=== PATIENT | female | born 1940 | race Caucasian/White ===

== ENCOUNTER → 2016-10-14 | Outpatient (REF) | payer MEDICARE, OTHER | LOC: M SFHCPLAZ 14:54 | PROVIDERS: ATTEND Family Medicine | DX: F10.10 Alcohol abuse, uncomplicated (principal); I15.9 Secondary hypertension, unspecified; Z13.21 Encounter for screening for nutritional disorder ==

== ENCOUNTER → 2017-01-28 | Outpatient (CLI) | payer MEDICARE, BC, OTHER ==
[~2017-01-28] MED LIST: E-Z PAQUE 60% w/v SUSP 355ML BOTTLE As Ordered ONE; E-Z-GAS II EFFERVESCENT PACKET (SODIUM BICARB./CITRIC ACID/SIMETHICONE) As Ordered ONE; E-Z-HD 98% w/w 340GM SUSP BTL As Ordered ONE
--- NOTE | 2017-01-28 16:52 | REP ---
UPPER GI AIR CONTRAST AND SMALL BOWEL FOLLOW-THROUGH: The procedure was performed under the direct supervision of Dr. Saha. The images were reviewed with Dr. Saha. The lining maker hand film demonstrates an unremarkable bowel gas pattern. There is a 4.2 cm calcified uterine fibroid in the pelvis. There are degenerative changes of the spine. Liquid barium and gas producing granules were given in the erect position as well as liquid barium in the prone oblique position in order to perform a double contrast upper GI examination. During the oral an pharyngeal stages of deglutition the patient did experience 1 episode of aspiration without cough response. Esophageal transport is prompt and efficient. There is mucosal irregularity at the GE junction. This may represent gastritis however neoplasm can not be excluded, recommend endoscopy for further evaluation. There is gastroesophageal reflux demonstrated to above the level of the kimberli. Within the stomach there is prominent areae gastricae seen throughout the stomach. There is mucosal fold thickening. There is a diffusely narrow gastric lumen. These findings may represent gastritis however neoplasm can not be excluded. Recommend endoscopy for further evaluation. The duodenal dey are normally outlined. The mucosal folds are smooth and regular. There is no evidence of duodenitis, pancreatitis, peptic ulcer disease, or neoplasm. There is a diverticulum seen in the third portion of the duodenum. The barium column was followed through the small bowel to the level of the terminal ileum. Small bowel transit time was quite rapid as contrast is seen in the cecum within just a few minutes of beginning the exam. During fluoroscopy gentle palpation shows all loops are freely movable and pliable. There are no fixed or angulated loops. The small bowel mucosal pattern is normal in course and caliber. There is no transition to suggest a partial small bowel obstruction. Spot filming of terminal ileum shows it to be unremarkable. IMPRESSION: 1. The patient experienced an episode of aspiration without cough response. 2. At the GE junction there is irregular mucosa. This may represent esophagitis however neoplasm can not be excluded. Recommend endoscopy for further evaluation. There is gastroesophageal reflux demonstrated to above the level of the kimberli. 3. Within the stomach there are prominent areae gastricae. There is mucosal fold thickening. There is diffuse narrowing of the gastric lumen. These findings may represent gastritis however neoplasm can not be excluded. Recommend endoscopy for further evaluation. 4 minutes and 48 seconds of fluoroscopy time was utilized for this procedure. Reviewed by KARIE Garcia 01/28/2017 04:58 PEdited and Signed by Yvan Saha MD 01/28/2017 05:10 P
== END ==
LOC: M RAD 08:49
PROVIDERS: ATTEND Family Medicine
DX: R68.81 Early satiety (principal)

== ENCOUNTER → 2017-02-25 | Outpatient (CLI) | payer MEDICARE, BC, OTHER ==
[~2017-02-25] VITALS: Ht 162.6 cm; Wt 46.7 kg
[~2017-02-25] MED LIST changes: +AMLO10TA PO; +AMLO25TA PO; +ATEN25TA PO; -E-Z PAQUE 60% w/v SUSP 355ML BOTTLE As Ordered ONE; -E-Z-GAS II EFFERVESCENT PACKET (SODIUM BICARB./CITRIC ACID/SIMETHICONE) As Ordered ONE; -E-Z-HD 98% w/w 340GM SUSP BTL As Ordered ONE; +NORV5TAB PO; +NS 1,000 ML IV ONE; +PROPOFOL 200 MG/20 ML VIAL As Ordered ONE; +VITA50003 PO
--- NOTE | 2017-02-25 10:41 | ROOR ---
Patient Name: Marcelina Mattson Procedure Date: 02/25/2017 10:18 AM Date of : 1940 Age: 76 Room: [facility] Gender: Female Note Status: Finalized Procedure: Upper GI endoscopy = Biopsies Indications: Dysphagia, Abnormal UGI series Providers: Price Rodríguez MD Referring MD: Jerson Duron DO Requesting Provider: Medicines: Monitored Anesthesia Care Complications: No immediate complications. Procedure: Pre-Anesthesia Assessment: - The heart rate, respiratory rate, oxygen saturations, blood pressure, adequacy of pulmonary ventilation, and response to care were monitored throughout the procedure. The Endoscope was introduced through the mouth, and advanced to the second part of duodenum. The upper GI endoscopy was accomplished without difficulty. The patient tolerated the procedure well. Findings: The Z-line was regular and was found 40 cm from the incisors. Diffuse severe inflammation characterized by congestion (edema), erosions, erythema, friability, granularity, linear erosions and shallow ulcerations was found in the cardia, in the gastric fundus and in the gastric body. Biopsies were taken with a cold forceps for histology. The exam of the duodenum was otherwise normal. Impression: - Z-line regular, 40 cm from the incisors. - Chronic gastritis. Biopsied. - The examination was otherwise normal. Recommendation: - Await pathology results. - Discharge patient to home. - Continue present medications. - Use Prilosec (omeprazole) 40 mg PO BID. - Use sucralfate tablets 1 gram PO QID. - Return to referring physician. - The findings and recommendations were discussed with the patient's family. Prcie Rodríguez MD Price Rodríguez MD 02/25/2017 10:40:25 AM This report has been signed electronically. Number of Addenda: 0 Note Initiated On: 02/25/2017 10:18 AM Estimated Blood Loss: Estimated blood loss: none.
[2017-02-25 10:45] VITALS: BP 147/93
== END | disposition home or self-care (01) ==
LOC: M OPP 09:28
PROVIDERS: ATTEND Internal Medicine Gastroenterology
DX: R93.3 Abnormal findings on diagnostic imaging of other parts of digestive tract (principal); R13.10 Dysphagia, unspecified; K29.70 Gastritis, unspecified, without bleeding; I10 Essential (primary) hypertension; R12 Heartburn; M81.0 Age-related osteoporosis without current pathological fracture; Z78.0 Asymptomatic menopausal state; R25.1 Tremor, unspecified; Z79.899 Other long term (current) drug therapy

== ENCOUNTER → 2017-02-28 | Outpatient (REF) | payer MEDICARE, OTHER ==
[~2017-02-28] MED LIST changes: -NS 1,000 ML IV ONE; -PROPOFOL 200 MG/20 ML VIAL As Ordered ONE
[2017-02-28 12:04] LABS: BASO % 0.3 % (0.0-1.0); EOS % 0.4 % (0.0-3.0); LARGE UNSTAINED CELL # 0.1 K/mm3 (0.0-0.4); LARGE UNSTAINED CELL % 1.6 % (0.0-4.0); LYMPH # 2.5 K/mm3 (1.5-4.5); LYMPH % 31.1 % (24.0-44.0); MEAN CORPUSCULAR HEMOGLOBIN 30.9 pg (27.0-33.0); MEAN CORPUSCULAR HGB CONC 32.6 g/dl (32.0-36.5); MEAN CORPUSCULAR VOLUME 94.6 fl (80.0-96.0); MONO # 0.6 K/mm3 (0.0-0.8); MONO % 8.2 % (0.0-5.0); NEUTROPHILS # 4.5 K/mm3 (1.8-7.7); NEUTROPHILS % 58.4 % (36.0-66.0); PLATELET COUNT, AUTOMATED 275 k/mm3 (150-450); RED CELL DISTRIBUTION WIDTH 12.8 % (11.5-14.5); WHITE BLOOD COUNT 7.7 K/mm3 (4.0-10.0)
[2017-02-28 12:45] LABS: ALBUMIN 3.6 GM/DL (3.2-5.2); ALBUMIN/GLOBULIN RATIO 1.13 (1.00-1.93); ALKALINE PHOSPHATASE 69 U/L (45-117); ALT/SGPT 19 U/L (12-78); ANION GAP 8 MEQ/L (8-16); AST/SGOT 20 U/L (15-37); BILIRUBIN,DIRECT 0.2 MG/DL (0.0-0.2); BILIRUBIN,TOTAL 0.5 MG/DL (0.2-1.0); BLOOD UREA NITROGEN 11 MG/DL (7-18); CALCIUM LEVEL 9.1 MG/DL (8.8-10.2); CARBON DIOXIDE LEVEL 29 MEQ/L (21-32); CHLORIDE LEVEL 103 MEQ/L (98-107); CREATININE FOR GFR 0.66 MG/DL (0.55-1.02); GLOMERULAR FILTRATION RATE > 60.0 (>39); GLUCOSE, FASTING 120 MG/DL (83-110); POTASSIUM SERUM 3.7 MEQ/L (3.5-5.1); SODIUM LEVEL 140 MEQ/L (136-145); TOTAL PROTEIN 6.8 GM/DL (6.4-8.2)
== END ==
LOC: M LABDRAWP 11:41
PROVIDERS: ATTEND Internal Medicine Gastroenterology
DX: C16.9 Malignant neoplasm of stomach, unspecified (principal); R93.3 Abnormal findings on diagnostic imaging of other parts of digestive tract

== ENCOUNTER → 2017-03-04 | Outpatient (CLI) | payer MEDICARE, BC, OTHER ==
[~2017-03-04] MED LIST changes: +GASTROGRAFIN SOLUTION 30ML (Q9963) As Ordered ONE; +ISOVUE-370 76% 100ML VIAL (Q9967) As Ordered ONE
--- NOTE | 2017-03-04 14:30 | REP ---
Clinical: Esophageal cancer. Technique: Axial contrast enhanced images from the lung bases to the pubic symphysis using oral and 100 ml Isovue 370 intravenous contrast material with precontrast and delayed images of the abdomen as well as coronal and sagittal re-formations. Comparison: None. Findings: There appears to be an irregular low density mass-like lesion involving the cardia of the stomach along with diffuse gastric wall thickening to the antrum and gastric carcinoma must be considered as the primary neoplasm. Liver, spleen, pancreas, gallbladder, bilateral adrenal glands and kidneys are normal. The small and large bowel is unremarkable and without obstruction or acute inflammatory process. There is a 2.7 x 2.6 x 1.7 cm fluid density lesion in the retroperitoneal space lateral to the aorta at the level of the renal artery (images 33 - 40) of uncertain etiology but may reflect lymph node. No other intraperitoneal or retroperitoneal adenopathy is appreciated and there is no evidence for ascites or obvious mass lesion within the abdomen and pelvis. The pelvis demonstrates normal bladder along with retroverted myomatous uterus demonstrating partially calcified degenerating fibroids measuring up to 4 cm diameter. The abdominal aorta and vasculature demonstrates atherosclerotic changes without aneurysm or dissection. The musculoskeletal structures demonstrate degenerative appearing changes. The lung bases are clear and without consolidation, nodule or mass. No pleural effusion. Visualized portions of the heart and pericardium are normal. Impression: 1. Extensive gastric wall thickening with focal low density area identified at the cardia suggest the possibility of gastric neoplasm as primary carcinoma. 2. 2.7 cm fluid density lesion in the para-aortic retroperitoneal space of uncertain etiology but may represent enlarged lymph node. 3. Calcified degenerating fibroids measuring 4 cm maximal diameter. 4. No ascites, obvious adenopathy, or mass/metastatic lesions identified. 5. Lung bases appear clear. Signed by Naif Stone MD 03/04/2017 02:21 P
== END ==
LOC: M RAD 11:50
PROVIDERS: ATTEND Internal Medicine Gastroenterology
DX: C16.9 Malignant neoplasm of stomach, unspecified (principal); R93.3 Abnormal findings on diagnostic imaging of other parts of digestive tract
CPT/HCPCS: 74178; Q9963; Q9967

== ENCOUNTER → 2017-03-18 | Outpatient (CLI) | payer MEDICARE, BC, OTHER ==
[~2017-03-18] MED LIST changes: -GASTROGRAFIN SOLUTION 30ML (Q9963) As Ordered ONE; -ISOVUE-370 76% 100ML VIAL (Q9967) As Ordered ONE
--- NOTE | 2017-03-19 08:36 | REP ---
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 Initial staging. Patient reports difficulty swallowing and weight loss. Comparisons: Comparison CT abdomen and pelvis is from March 04, 2017. Comparison up GI series is from January 28, 2017. TECHNIQUE: 68 minutes following the intravenous injection of a 9.5 mCi dose of F-18 FDG, three-dimensional PET scintigraphy is acquired from the skull base to the proximal thighs. Triplanar noncontrast CT scanning is acquired through the same anatomic range for attenuation correction, and image registration with scan parameters optimized to minimize radiation exposure to the patient. PET scintigraphy and CT datasets were fused and displayed on a workstation with multiplanar and projection display capability. PET/CT Findings: The head and neck region is unremarkable. In the chest, there is a somewhat to the curvilinear area of hypermetabolic pulmonary parenchymal uptake in the distribution of the right upper lobe medially adjacent to the mediastinum. Maximum standard uptake value here is 5.8. There is a patchy infiltrate in the anterior segment of the right upper lobe associated with this and there is another area of mildly hypermetabolic uptake anteriorly and peripherally in this infiltrate. Maximum standard uptake value in this more peripheral infiltrative area is 2.3. These changes may be inflammatory. I note that the patient aspirated some of the barium during the upper GI series and January 2017. No other abnormal hypermetabolic uptake is seen within the chest. In the abdomen, there is mildly hypermetabolic uptake in the wall of the gastric cardia medially. This is distributed over a fairly large area of the gastric cardia with only mildly hypermetabolic uptake. Maximum standard uptake value 3.4. Diffuse mural thickening is seen in this region. The CT study showed a 2.7 cm low density left periaortic lesion consistent with at a cyst or perhaps a necrotic lymph node. This shows discernible but non hypermetabolic FDG accumulation. Maximum standard uptake value is 2.1. No other abnormal hypermetabolic abdominal or pelvic uptake is seen. Incidental findings include hydronephrosis of the right kidney and a calcified uterine leiomyoma along the posterior aspect of the uterus. No other suspicious hypermetabolic uptake is seen. Impression: The known malignancy in the gastric cardia shows mildly hypermetabolic uptake. The left retroperitoneal mass shows discernible but non hypermetabolic uptake. This may be necrotic adenopathy. In the chest there is an infiltrate in the anterior segment right upper lobe and there is a somewhat linear more solid focus of hypermetabolic uptake in the medial aspect of the right upper lobe adjacent to the mediastinum which merits follow-up. This may be inflammatory or conceivably early neoplasm. Chest CT follow-up is advised. Signed by Yvan Saha MD 03/19/2017 08:28 A
== END ==
LOC: M PLARAD 10:23
PROVIDERS: ATTEND Surgery
DX: C16.0 Malignant neoplasm of cardia (principal); R63.4 Abnormal weight loss; I10 Essential (primary) hypertension
CPT/HCPCS: 78815; A9552

== ENCOUNTER → 2017-03-20 | Outpatient (REF) | payer MEDICARE, OTHER ==
[2017-03-20 13:26] LABS: INR 0.92
== END ==
LOC: M LAB REF 12:16
PROVIDERS: ATTEND Internal Medicine Medical Oncology
DX: C26.9 Malignant neoplasm of ill-defined sites within the digestive system (principal); Z79.01 Long term (current) use of anticoagulants

== ENCOUNTER → 2017-03-26 | Outpatient (CLI) | payer MEDICARE, BC, OTHER ==
[~2017-03-26] MED LIST changes: +LIDOCAINE W/EPINEPHRINE 1% 20ML VIAL As Ordered ONE; +MIDAZOLAM INJ 2 MG/2 ML VIAL (J2250) As Ordered ONE; +SODIUM BICARBONATE 4 % INJ 2.4MEQ 5 ML VIAL (THIS HAS A PRESERVATIVE) As Ordered ONE; +ceFAZolin 1GM INJ (J0690) As Ordered ONE; +fentaNYL 100 MCG/2 ML INJECTION (J3010) As Ordered ONE
--- NOTE | 2017-03-26 18:08 | REPKIM ---
CLINICAL HISTORY: Gastric adenoca and retroperitoneal mass. The referring service has asked a chest [id number] placement for chemotherapy. PROCEDURE PERFORMED: Placement of totally implantable venous access device under combined sonographic and fluoroscopic guidance INTERVENTIONALIST: Vaibhav Anderson MD CONSENT: The risks, benefits and alternatives to the procedure were explained to the patient and informed written consent was obtained. MEDICATIONS: Local Lidocaine, Ancef 1g IV, Versed IV and Fentanyl IV. SEDATION: Anxiolytic conscious sedation using Versed 1.0 mg IV and Fentanyl 50 mcg IV; starting time at 1510 and end at 1551. Independent trained observer was present during the entire duration of the conscious sedation for monitoring. EBL: 5 mL FLUORO TIME: 0.2 minutes DEVICE USED: [employer] Low Profile Power Port 6.6-[place], Single-Lumen Lot# [id number] PROCEDURE/FINDINGS: The patient was brought to the interventional radiology suite and was positioned supine on the table. Time out procedure was performed. Real time ultrasound was used and permanent image stored. The right IJ vein is patent and compressible. Using ultrasound guidance the internal jugular vein was accessed with a micropuncture needle, after infiltration of the skin and deep tissues with local anesthetic. A peel-away sheath was placed. The catheter tip was inserted via the sheath under controlled respiration. The sheath was removed, and the catheter was flushed with heparinized saline and clamped. Next attention was turned to creation of a subcutaneous pocket for the port along the upper chest. The overlying skin and deep tissues were infiltrated with local anesthetic. A transverse skin incision was made long enough to accommodate the reservoir, and using blunt dissection a subcutaneous pocket was created. A tunnel was created from the pocket to the access site. A clamp was advanced from the pocket incision to the venous access site and used to grasp the free end of the catheter and pull it through to the pocket incision. The catheter was trimmed, attached to the reservoir, and flushed with heparinized saline. The reservoir was inserted into the pocket and secured with 2-0 absorbable sutures. The deep tissue was closed with interrupted 2-0 Vicryl suture. The skin incision was closed with a running subcuticular suture of 4-0 Vicryl. The venotomy incision was closed with 4-0 Vicryl suture. Mastisol and Steri-Strips were applied. The port was then accessed and Heparin (100 units/mL concentration) locked in the port. A sterile dressing was then applied. Post procedure chest spot film radiograph showed the tip of the catheter is at the cavoatrial junction. The patient tolerated the procedure well with no immediate complications. This procedure was performed using ultrasound and fluoroscopy. Dr. Anderson was present. IMPRESSION: 1. The right IJ vein is patent and compressible. 2. Successful placement of right IJ chest port placement as discussed above. The chest [id number] is ready for use. cc: MD BRIAN Rashid
== END | disposition home or self-care (01) ==
LOC: M IRPRO 12:27
PROVIDERS: ATTEND Internal Medicine Medical Oncology
DX: C16.9 Malignant neoplasm of stomach, unspecified (principal); R19.09 Other intra-abdominal and pelvic swelling, mass and lump
CPT/HCPCS: 36561; 76937; 77001; 99152; 99153; C1788; C1894; J0690; J2250; J3010

== ENCOUNTER → 2017-03-31 | Outpatient (CLI) | payer MEDICARE, BC, OTHER ==
[~2017-03-31] MED LIST changes: +LIDOCAINE 1% MDV 20ML VIAL As Ordered ONE; -LIDOCAINE W/EPINEPHRINE 1% 20ML VIAL As Ordered ONE; -MIDAZOLAM INJ 2 MG/2 ML VIAL (J2250) As Ordered ONE; -SODIUM BICARBONATE 4 % INJ 2.4MEQ 5 ML VIAL (THIS HAS A PRESERVATIVE) As Ordered ONE; -ceFAZolin 1GM INJ (J0690) As Ordered ONE; -fentaNYL 100 MCG/2 ML INJECTION (J3010) As Ordered ONE
--- NOTE | 2017-03-31 16:51 | REP ---
CT GUIDED LEFT PARAORTIC MASS BIOPSY: The procedure was performed under the direct supervision of Dr. Enriquez. The patient has a history of a 2.7 cm fluid density lesion in the para-aortic retroperitoneal space seen in a previous CT scan performed on 03/04/2017. The risks and benefits of the procedure were explained to the patient and informed consent was obtained. The left para-aortic mass was localized using CT guidance. The skin was prepped and draped in a sterile fashion. 1% Xylocaine was used as a local anesthetic. Using CT guidance a 19/20 gauge coaxial needle biopsy system was inserted and then advanced into the mass. 5 core biopsy samples were obtained and sent to the lab. The patient tolerated the procedure well and there were no immediate complications. After the appropriate amount of monitored convalescence the patient was discharged from the department. Reviewed by KARIE Garcia 04/01/2017 09:14 AEdited and Signed by Onur Enriquez MD 04/01/2017 05:07 P
== END ==
LOC: M RADPRO 10:22
PROVIDERS: ATTEND Internal Medicine Medical Oncology
DX: R59.0 Localized enlarged lymph nodes (principal); C16.0 Malignant neoplasm of cardia; Z79.899 Other long term (current) drug therapy

== ENCOUNTER → 2017-04-07 | Outpatient (REF) | payer MEDICARE, BC, OTHER ==
[~2017-04-07] MED LIST changes: -LIDOCAINE 1% MDV 20ML VIAL As Ordered ONE; +VITA1CAP40 PO; -VITA50003 PO
[2017-04-08 10:49] LABS: CARCINOEMBRYONIC ANTIGEN < 0.5 NG/ML (<2.5)
== END ==
LOC: M LAB REF 10:56
PROVIDERS: ATTEND Internal Medicine Medical Oncology
DX: C16.9 Malignant neoplasm of stomach, unspecified (principal)

== ENCOUNTER → 2017-04-14 | Outpatient (REF) | payer MEDICARE, OTHER | LOC: M SFHCPLAZ 12:41 | PROVIDERS: ATTEND Family Medicine | DX: R53.83 Other fatigue (principal); E55.9 Vitamin D deficiency, unspecified ==

== ENCOUNTER → 2017-05-01 | Outpatient (REF) | payer MEDICARE, OTHER ==
[2017-05-01 18:40] LABS: BASO % 0.2 % (0.0-1.0); EOS # 0.1 K/mm3 (0.0-0.50); EOS % 1.2 % (0.0-3.0); LARGE UNSTAINED CELL # 0.2 K/mm3 (0.0-0.4); LARGE UNSTAINED CELL % 2.8 % (0.0-4.0); LYMPH # 2.6 K/mm3 (1.5-4.5); LYMPH % 38.9 % (24.0-44.0); MEAN CORPUSCULAR HEMOGLOBIN 30.2 pg (27.0-33.0); MEAN CORPUSCULAR HGB CONC 33.4 g/dl (32.0-36.5); MEAN CORPUSCULAR VOLUME 90.5 fl (80.0-96.0); MONO # 0.7 K/mm3 (0.0-0.8); NEUTROPHILS # 2.9 K/mm3 (1.8-7.7); NEUTROPHILS % 45.9 % (36.0-66.0); PLATELET COUNT, AUTOMATED 167 k/mm3 (150-450); RED CELL DISTRIBUTION WIDTH 13.1 % (11.5-14.5); WHITE BLOOD COUNT 6.3 K/mm3 (4.0-10.0)
[2017-05-01 19:07] LABS: VITAMIN B12 LEVEL 342 PG/ML (247-911)
[2017-05-01 19:08] LABS: ALBUMIN 3.1 GM/DL (3.2-5.2); ALBUMIN/GLOBULIN RATIO 1.07 (1.00-1.93); ALKALINE PHOSPHATASE 73 U/L (45-117); ALT/SGPT 19 U/L (12-78); ANION GAP 6 MEQ/L (8-16); AST/SGOT 16 U/L (15-37); BILIRUBIN,TOTAL 0.2 MG/DL (0.2-1.0); BLOOD UREA NITROGEN 10 MG/DL (7-18); CALCIUM LEVEL 8.3 MG/DL (8.8-10.2); CARBON DIOXIDE LEVEL 31 MEQ/L (21-32); CHLORIDE LEVEL 103 MEQ/L (98-107); FERRITIN 62 NG/ML (8-252); FREE T4 1.13 NG/DL (0.76-1.46); GLOMERULAR FILTRATION RATE > 60.0 (>39); GLUCOSE, FASTING 97 MG/DL (83-110); PERCENT SATURATION 8.3 % (13.2-37.4); SODIUM LEVEL 140 MEQ/L (136-145); TOTAL IRON BINDING CAPACITY 350 UG/DL (250-450)
== END ==
LOC: M SFHCPLAZ 15:25
PROVIDERS: ATTEND Family Medicine
DX: R53.83 Other fatigue (principal); E55.9 Vitamin D deficiency, unspecified; D64.9 Anemia, unspecified

== ENCOUNTER → 2017-05-19 | Outpatient (REF) | payer MEDICARE, OTHER ==
[2017-05-19 14:15] LABS: MAGNESIUM LEVEL 2.1 MG/DL (1.8-2.4)
[2017-05-20 08:32] LABS: CARCINOEMBRYONIC ANTIGEN 1.1 NG/ML (<2.5)
== END ==
LOC: M LAB REF 13:43
PROVIDERS: ATTEND Internal Medicine Medical Oncology
DX: C16.9 Malignant neoplasm of stomach, unspecified (principal)

== ENCOUNTER → 2017-05-27 | Outpatient (CLI) | payer MEDICARE, BC, OTHER ==
--- NOTE | 2017-05-27 14:09 | REP ---
Whole body PET CT scan: Comparisons are the prior PET CT scan dated 03/18/[address] of the abdomen pelvis dated 03/04/2017. Whole-body scanning is performed from skull base to the upper thighs. Neck and supraclavicular areas: There are no hypermetabolic foci. This is unchanged. Chest: The hypermetabolic focus identified previously in the right suprahilar zone is no longer present. There is again a pleural-based nodule anteriorly in the right upper lobe approximate 1 cm diameter demonstrating borderline hypermetabolic activity with the standard uptake value 2.4. This is similar to the prior study. There is several small nodules, all less than 1 cm in size, posteriorly in the right upper lobe, not present previously, demonstrating non hypermetabolic uptake with a maximum standard uptake value of 1.1. Abdomen, pelvis and upper thighs: There is a 1.5 cm focus of hypermetabolic uptake in the mucosal surface of the gastric fundus with a standard uptake value of 5.3 as a change from the prior study. There is diffuse mild uptake throughout the remainder of the gastric wall, nonspecific, possibly artifact from gastric peristalsis. The known focal low density lesion in the periaortic area near the diaphragmatic hiatus, medial to the stomach identified on the original CT of the abdomen and pelvis dated 03/04/2017 demonstrates non hypermetabolic uptake with a standard uptake value of 2.2. This is not significantly changed from the prior PET scan. There is a small hypermetabolic focus approximately 1 cm in diameter in the mid pelvis anterior to the calcified uterine leiomyoma, not present previously. On the accompanying CT, the only organ in this location are bowel loops. Therefore, this could be uptake in a bowel loop or in a mesenteric node or possibly in a diverticulum. The standard uptake value is 7.4. There are no other hypermetabolic foci in the abdomen, pelvis or upper thighs: Impression: Previously there was a small hypermetabolic focus in the right suprahilar zone. This is no longer present. There is a pleural-based nodule anteriorly in the right upper lobe approximately 1 cm diameter with borderline hypermetabolic uptake having a standard uptake value of 2.4. There are several new small nodules posteriorly in the right upper lobe demonstrating non hypermetabolic uptake with a standard uptake value of 1.1. There is a new hypermetabolic focus along the mucosal surface of the gastric fundus measuring approximate 1.5 cm with a standard uptake value of 5.3. There is a new low 1 cm hypermetabolic focus in the mid pelvis anterior to the calcified uterine fibroid, not present previously demonstrating a standard uptake value of 7.4. This could be uptake in a mesenteric node, bowel loop or bowel diverticulum. Signed by Onur Medeiros MD 05/27/2017 01:59 P
== END ==
LOC: M PLARAD 10:36
PROVIDERS: ATTEND Internal Medicine Medical Oncology
DX: C26.9 Malignant neoplasm of ill-defined sites within the digestive system (principal)
CPT/HCPCS: 78815; A9552

== ENCOUNTER → 2017-07-09 | Outpatient (REF) | payer MEDICARE, BC, OTHER | LOC: M LAB REF 12:42 | PROVIDERS: ATTEND Internal Medicine Medical Oncology | DX: C16.0 Malignant neoplasm of cardia (principal); C16.1 Malignant neoplasm of fundus of stomach; R97.8 Other abnormal tumor markers ==

== ENCOUNTER → 2017-08-12 | Outpatient (CLI) | payer MEDICARE, BC, OTHER ==
--- NOTE | 2017-08-13 11:15 | REP ---
Whole body PET CT scan: Comparison is the prior PET CT scan dated 2016. Whole-body scanning is performed from skull base to the upper thighs. Neck and supraclavicular areas: There are no hypermetabolic foci. This is unchanged. Chest: There is a subpleural nodule anteriorly inferiorly in the right upper lobe as previously. This demonstrates non hypermetabolic uptake with a maximal standard uptake value of 1.4. This previously demonstrated non hypermetabolic uptake with a maximal standard uptake value of 2.4. There are several small nodules posteriorly in the right upper lobe demonstrating non hypermetabolic uptake with a maximal standard uptake value 0.8. These appear to have decreased in number. Previously there was non hypermetabolic uptake with a maximum standard uptake value of 1.1. There is a a new 8 mm nodule in the superior segment of the right lower lobe demonstrating non hypermetabolic uptake with a maximal standard uptake value of 1.1. This was not present previously. There are calcifications in the right subscapularis and infraspinatus muscles and tendons as previously compatible with calcific tendonitis. There are no other hypermetabolic foci in the chest. Abdomen: There is a hypermetabolic focus in the gastric mucosa as previously. The focus appears to be decreased in size. The maximal standard uptake value today is 3.7. As previously was 5.3. The periaortic collection identified on the CT of 03/04/2017 again demonstrates no uptake with a maximal standard uptake value of 1.1. There is persistent radiolabeling of all the calyces pelvis of the right kidney whereas the radiotracer in the left kidney has mostly washed out. This suggests the possibility of right hydronephrosis. This is unchanged from the prior study. Upon review of the abdomen CT of 03/04/2017 there was no hydronephrosis at that time. There is again a small focus of hypermetabolic uptake measuring 1 cm in diameter within a bowel loop anterior to the uterine fundus, possibly within a colonic polyp. The standard uptake value today maximally measures 4.6. Colonoscopy might be considered for evaluation of colonic polyps. Impression: There is hypermetabolic uptake along the mucosal surface of the stomach, however the maximal uptake value has decreased. The pleural-based nodule anteriorly inferiorly in the upper lobe of the right lung again demonstrates non hypermetabolic uptake. The small nodules posteriorly in the right upper lobe appear decreased in number and demonstrate non hypermetabolic uptake. The new nodule in the lower lobe of the right lung demonstrates non hypermetabolic uptake. There is a again hypermetabolic uptake within a bowel loop anterior to the uterine fundus, possibly within a colonic polyp. Consider colonoscopy for further evaluation. The study is performed with 10 mCi of F 18 FDG. Signed by Onur Medeiros MD 08/13/2017 11:06 A
== END ==
LOC: M PLARAD 10:30
PROVIDERS: ATTEND Internal Medicine Medical Oncology
DX: C16.9 Malignant neoplasm of stomach, unspecified (principal)
CPT/HCPCS: 78815; A9552

== ENCOUNTER → 2017-10-23 | Outpatient (REF) | payer MEDICARE, OTHER ==
[2017-10-23 20:29] LABS: HEMATOCRIT 32.7 % (36.0-47.0)
[2017-10-23 21:14] LABS: VITAMIN B12 LEVEL 973 PG/ML (247-911)
[2017-10-24 18:56] LABS: PRETREATED FOLATE FOR RBCFOL 13.3 NG/ML; RBC FOLATE 854.1 NG/ML (280-791)
== END ==
LOC: M SFHCPLAZ 16:08
DX: G62.9 Polyneuropathy, unspecified (principal)
CPT/HCPCS: 82607

== ENCOUNTER → 2017-11-04 | Outpatient (CLI) | payer MEDICARE, BC, OTHER | LOC: M PLARAD 09:19 | DX: C16.9 Malignant neoplasm of stomach, unspecified (principal) | CPT/HCPCS: 78815 ==

== ENCOUNTER 2017-11-12 12:51 | Day surgery (SDC) | payer MEDICARE, BC, OTHER ==
[2017-11-12] MEDS ORDERED: NS 1,000 ML IV (13:30)
[2017-11-12] MEDS ORDERED: LIDOCAINE 2% INJ 100 MG/5 ML SDV (FOR ANES.) As Ordered (14:19)
[2017-11-12] MEDS ORDERED: PROPOFOL 200 MG/20 ML VIAL As Ordered (14:19)
== END 2017-11-12 15:18 | disposition home or self-care (01) ==
LOC: M OPP 12:51
DX: Z08 Encounter for follow-up examination after completed treatment for malignant neoplasm (principal); C16.1 Malignant neoplasm of fundus of stomach; I10 Essential (primary) hypertension; R05 Cough; Z92.21 Personal history of antineoplastic chemotherapy; K90.9 Intestinal malabsorption, unspecified; M81.0 Age-related osteoporosis without current pathological fracture; G62.9 Polyneuropathy, unspecified; Z78.0 Asymptomatic menopausal state; R25.1 Tremor, unspecified; Z79.899 Other long term (current) drug therapy
CPT/HCPCS: 43239

== ENCOUNTER → 2017-12-02 | Outpatient (REF) | payer MEDICARE, BC, OTHER | LOC: M LAB REF 13:32 | DX: C16.0 Malignant neoplasm of cardia (principal) | CPT/HCPCS: 88300 ==

== ENCOUNTER → 2018-01-06 | Outpatient (CLI) | payer MEDICARE, BC, OTHER | LOC: M ONCR 09:05 | DX: C16.0 Malignant neoplasm of cardia (principal) | CPT/HCPCS: G0463 ==

== ENCOUNTER → 2018-03-31 | Outpatient (CLI) | payer MEDICARE, BC, OTHER | LOC: M PLARAD 11:27 | DX: G24.9 Dystonia, unspecified (principal); C16.9 Malignant neoplasm of stomach, unspecified | CPT/HCPCS: 78815 ==